=== PATIENT | male | born 1980 | race Caucasian/White ===

== ENCOUNTER 2017-11-29 12:25 | Emergency (ER) | payer MEDICAID ==
[~2017-11-29] VITALS: Ht 177.8 cm; Wt 61.2 kg
[2017-11-29 12:50] VITALS: BP 129/78
[2017-11-29] MEDS ORDERED: HYDROcodone/APAP 5/325MG 1 TAB TABLET PO ONE (13:15)
[2017-11-29] MEDS ORDERED: PENI500T PO (13:41)
--- NOTE | 2017-11-29 13:41 | PHYS DOC ---
Past Medical History Past Medical History: No Pertinent History Past Surgical History: No Surgical History Alcohol Use: None Drug Use: None Adult General Chief Complaint Chief Complaint: FACE PROBLEM HPI HPI Patient is a 37 year old male who presents to the ER with complaints of left facial swelling and LLQ dental pain for the last day. He currently rates his pain at 8 out of 10 on the pain scale, he has not taken any medication for relief of the pain. Pt states he has several broken molars in the LLQ but they have been broken for years and he has never had a problem. He has a dental appointment this Monday for an orthodontic consult. He denies any recent injury , nausea, vomiting, difficulty swallowing, or fever. Review of Systems Review of Systems Constitutional: Denies fever or chills [] Eyes: Denies change in visual acuity, redness, or eye pain [] HENT: Reports left facial swelling and LLQ dental pain. Integument: Denies rash or skin lesions [] Neurologic: Denies headache All other systems were reviewed and found to be within normal limits, except as documented in this note. Current Medications Current Medications Current Medications Medications (Trade) Dose Ordered Sig/Coby Start Time Stop Time Status Last Admin Dose Admin Acetaminophen/ Hydrocodone Bitart (Lortab 5/325) 1 tab 1X ONCE 11/29/17 13:15 11/29/17 13:16 DC 11/29/17 13:36 1 TAB Allergies Allergies Allergies Coded Allergies Type Severity Reaction Last Updated Verified No Known Drug Allergies 11/29/17 No Physical Exam Physical Exam Constitutional: Well developed, well nourished, no acute distress, non-toxic appearance. [] HENT: Normocephalic, atraumatic, bilateral external ears normal, oropharynx moist, no oral exudates, nose normal, diffuse decay in LLQ of mouth with tenderness to palpation of LLQ gums and mild swelling of left submandibular lymphnodes and left lower face. . [] Eyes: PERRLA, conjunctiva normal, no discharge. [] Lungs & Thorax: Respirations even and unlabored Skin: Warm, dry, no erythema, no rash. [] Neurologic: Alert and oriented X 3, normal motor function, normal sensory function, no focal deficits noted. [] Psychologic: Affect normal, judgement normal, mood normal. [] Current Patient Data Vital Signs Vital Signs Date Time Temp Pulse Resp B/P (MAP) Pulse Ox O2 Delivery O2 Flow Rate FiO2 11/29/17 13:36 18 100 Room Air 11/29/17 12:50 97.8 103 129/78 (95) 97.8 EKG EKG [] Radiology/Procedures Radiology/Procedures [] Course & Med Decision Making Course & Med Decision Making Pertinent Labs and Imaging studies reviewed. (See chart for details) Patient is a 37-year-old male who presented to the ER with complaints of left facial swelling and LLQ dental pain x1 day. VSS. Physical exam reveals diffuse decay in LLQ of mouth and tenderness to palpation of this area consistent with infected dental caries and fractured teeth. Pt was given one hydrocodone in the ER for pain. A prescription for Penicillin VK was written. Pt verbalized an understanding of home care, prescription, follow-up, and return to ED instructions with no further questions or concerns and was in agreement with POC. [] Dragon Disclaimer Dragon Disclaimer This electronic medical record was generated, in whole or in part, using a voice recognition dictation system. Departure Departure Impression: Primary Impression: Infected dental caries Additional Impression: Pain, dental Disposition: 01 HOME, SELF-CARE Condition: STABLE Patient Instructions: Dental Caries, Dental Pain, [id number] Additional Instructions: Fill the Prescription and use as directed. You may take Tylenol, Aleve, or ibuprofen as needed for pain. Follow-up with your dentist later this week as scheduled. Return to the emergency room if your symptoms worsen. Scripts Penicillin V Potassium (PENICILLIN V POTASSIUM) 500 Mg Tablet 1 TAB PO QID for 7 Days, #28 TAB 0 Refills Prov: NAM ARCHER APRN 11/29/17 Problem Qualifiers NAM ARCHER APRN Nov 29, 2017 13:41
== END 2017-11-29 13:58 | disposition home or self-care (01) ==
LOC: ER 12:25
DX: K04.7 Periapical abscess without sinus (principal); K08.89 Other specified disorders of teeth and supporting structures
CPT/HCPCS: 99283